=== PATIENT | female | born 2000 ===

== ENCOUNTER 2022-11-01 17:36 | Outpatient (REF) | payer BC, SELFPAY ==
[2022-11-02 05:53] LABS: CT PCR NOT DETECTED (Not Detect.); NG PCR NOT DETECTED (Not Detect.)
== END 2022-11-01 17:37 | disposition home or self-care (01) ==
LOC: HO.LNP 17:36
PROVIDERS: Visit Provider Physician Assistant
DX: Z76.89 Persons encountering health services in other specified circumstances (principal); Z20.2 Contact with and (suspected) exposure to infections with a predominantly sexual mode of transmission
CPT/HCPCS: 0353U

== ENCOUNTER 2023-03-07 11:51 | Outpatient (REF) | payer BC, SELFPAY ==
[2023-03-08 15:10] LABS: BV Int Neg Control Negative (Negative); BV Int Pos Control Positive (Positive)
== END 2023-03-07 11:52 | disposition home or self-care (01) ==
LOC: HO.LNP 11:51
PROVIDERS: Visit Provider Internal Medicine
DX: N76.0 Acute vaginitis (principal); B96.89 Other specified bacterial agents as the cause of diseases classified elsewhere
CPT/HCPCS: 87480; 87510; 87660

== ENCOUNTER 2023-03-07 15:39 | Outpatient (AMB) | payer BC, SELFPAY ==
--- OUTSIDE RECORDS SUMMARY | 2023-03-07 15:41 | XMS_ITS | Continuity of Care Document ---
Author Name Unknown Organization [facility] ter Address [address] [place] [id number]- Care Team Providers Care Trademark Paralegal Name Role Phone Nalini Michael MD Primary Care Physician Encounter [facility] [place] Date(s): 08/07/19 - 08/14/[address] [address]- [facility] Attending Physician: Cassie Chanel Allergies, Adverse Reactions, Alerts No Known Medication Allergies Substance Reaction Severity Status NKA Active Problem List Condition Effective Dates Status Health Status Inform ant Anxiety(Confirmed) Active Depression(Confirmed) Active Transient alteration of awareness(Confirmed) Active Social History Social History Type Response Smoking Status Never smoker entered on: 08/02/17 Sex
--- OUTSIDE RECORDS SUMMARY | 2023-03-07 15:41 | XMS_ITS | Continuity of Care Document ---
Author Name Unknown Organization [facility] ter Address [address] [place] [address]- Care Team Providers Care Assistant Controller Name Role Phone Nalini Michael MD Primary Care Physician Encounter [facility] [place] Date(s): 07/19/19 - 07/19/[address] [address]- [facility] Attending Physician: Michelle FRY, Neelima Payne Allergies, Adverse Reactions, Alerts No Known Medication Allergies Substance Reaction Severity Status NKA Active Problem List Condition Effective Dates Status Health Status Inform ant Anxiety(Confirmed) Active Depression(Confirmed) Active Transient alteration of awareness(Confirmed) Active Social History Social History Type Response Smoking Status Never smoker entered on: 08/02/17 Sex
--- OUTSIDE RECORDS SUMMARY | 2023-03-07 15:41 | XMS_ITS | Continuity of Care Document ---
Author Name [facility] Address [address] [place] [address] Organization [facility] Address [address] [place] [address] Support Name Relationship Address Phone No Primary Care, Physician Primary Care Provider Unknown Unavailable Patti Rouse Emergency Provider [facility] Emergen cy Department [address] [place] [address] Allergies, Adverse Reactions, Alerts No known allergies. Medications No medication information available. Problem List Active Problems Medical Problem Onset Date Status Drug withdrawal seizure Active Procedures Procedure Date Status CT cervical spine wo con August 04, [address] facial bones wo con August 04, [address] head/brain wo con August 04, 2020 active Relevant Diagnostic Tests and/or Laboratory Data Laboratory Results Test Date/Time Result Interp. Ref. Range Result Co mment White Blood Count August 04, 2020 7:20pm 7.4 10^3/uL 4.5-10.5 Red Blood Count August 04, 2020 7:20pm 4.26 10^6uL 4.00-5.00 Hemoglobin August 04, 2020 7:20pm 12.3 g/dL 11.8-15.8 Hematocrit August 04, 2020 7:20pm 36.4 % 35.0-45.0 Mean Corpuscular Volume August 04, 2020 7:20pm 85.5 fL 80.0-100.0 Mean Corpuscular Hemoglobin August 04, 2020 7:20pm 28.8 pg 23.0-31.0 Mean Corpuscular Hemoglobin Concent August 04, 2020 7:20pm 33.7 g/dL 32.0-36.0 Platelet Count August 04, 2020 7:20pm 347 10^3/uL 150-400 RDW Coefficient of Variation August 04, 2020 7:20pm 12.7 % 12.5-15.5 Mean Platelet Volume August 04, 2020 7:20pm 8.0 fL 7.0-10.5 Neutrophils (%) (Auto) August 04, 2020 7:20pm 78 % High 44-74 Lymphocytes (%) (Auto) August 04, 2020 7:20pm 17 % 16-46 Monocytes (%) (Auto) August 04, 2020 7:20pm 5 % 5-12 Eosinophils (%) (Auto) August 04, 2020 7:20pm 0 % 0-8 Basophils (%) (Auto) August 04, 2020 7:20pm 1 % 0-2 Absolute Neutrophils (auto) August 04, 2020 7:20pm 5.7 10^3/uL 1.5-7.8 Absolute Lymphocytes (auto) August 04, 2020 7:20pm 1.2 10^3/uL 0.85-4.1 Absolute Monocytes (auto) August 04, 2020 7:20pm 0.3 10^3/uL 0.2-1.1 Absolute Eosinophils (auto) August 04, 2020 7:20pm 0.0 10^3/uL Low 0.05-0.6 Absolute Basophils (auto) August 04, 2020 7:20pm 0.0 10^3/uL 0-0.2 Sodium Level August 04, 2020 7:20pm 135 mmol/L Low 136-145 Potassium Level August 04, 2020 7:20pm 4.9 mmol/L 3.5-5.1 Chloride Level August 04, 2020 7:20pm 99 mmol/L 98-107 Carbon Dioxide Level August 04, 2020 7:20pm 25 mmol/L 22-29 Anion Gap August 04, 2020 7:20pm 11 mmol/L 6-18 Blood Urea Nitrogen August 04, 2020 7:20pm 12 mg/dL 6-20 Creatinine August 04, 2020 7:20pm 0.7 mg/dL 0.5-0.9 Glomerular Filtration Rate Calc August 04, 2020 7:20pm > 60.00 mL/min 60- Multiply x 1.212 if of descent normal kidney function >60 mL/min results normalized to 1.73 m sq body surface area. Glucose Level August 04, 2020 7:20pm 98 mg/dL 74-109 Calcium Level August 04, 2020 7:20pm 10.3 mg/dL 8.6-10.4 Total Bilirubin August 04, 2020 7:20pm 0.5 mg/dL 0.4-1.2 Aspartate Amino Transf (AST/SGOT) August 04, 2020 7:20pm 24 IU/L 10-35 Alanine Aminotransferase (ALT/SGPT) August 04, 2020 7:20pm 24 U/L 5-33 Alkaline Phosphatase August 04, 2020 7:20pm 95 IU/L 35-104 Total Protein August 04, 2020 7:20pm 8.0 g/dL 6.6-8.7 Albumin August 04, 2020 7:20pm 4.9 g/dL 3.5-5.2 Advance Directives Advance Directive Response Recorded Date/ Time Date Patient Queried 08/04/20 August 04, 2020 6:20pm Does the patient have a Healthcare Proxy? No August 04, 2020 6:20pm Healthcare Proxy Status Informed Patient August 04, 2020 6:20pm Chief Complaint and Reason for Visit Encounter Admit Date Chief Complaint Reason for V isit Departed Emergency August 04, 2020 5:21pm seizure Hospital Discharge Instructions Additional Discharge Instructions Your e valuated today in the [place] emergency room after seizure while at rehab. You have started phenobarbital. You should continue taking that during your rehab stay. CT scan of your head, face, neck were all negative for acute pathology. Your tooth is chipped 10 you will need to follow-up with a dentist for this, there is nothing we can do in the emergency room fix this. . Your blood work is reassuring . Please follow-up with your primary care doctor in the next week. . Call MD return to the ED for fevers, chills, nausea, vomiting, chest pain, shortness of breath, or any other concern. Instruction/Education Provided Nonepilep tic Seizures (ED) Encounters Encounter Facility Location Admit/Visit Date Discharge/Departure Date Attending Provider Departed Emergency [facility] Emergency Department August 04, 2020 5:21pm August 04, 2020 9:49pm Functional Status Query Response Date Recorded Comment Patient Orientation Oriented x3 Person Place Time Awake Lethargic August 04, 2020 7:27pm Immunizations No known immunizations. Plan of Care Instructions Nonepileptic Seizures (ED) Social History Query Response Date Recorded Comment Does the patient use drugs? No August 04 7:27pm Is pt a current\former smoke r or user of tobacco products? Yes, current August 04, 2020 7:27pm On average how many days per week do you drink alcohol? 0 August 04, 2020 7:27pm Query Response Start Date Stop Date Is pt a current\former smoke r or user of tobacco products? Yes, current Vital Signs Vital Reading Result Reference Range Collection Date/Time Height 4 ft 11 in August 04 5:22pm Weight 50 kg August 04 5:22pm Temperature 98.9 F 97.5 F-99.3 F August 04 9:26pm Pulse 74 BPM 60-90 August 04 9:26pm Respiration 20 RPM -August 04 9:26pm Pulse Oximetry 100 % 95-100 August 04 9:26pm Blood Pressure Systolic 103 100-160 Jaleel cheatham 2020 9:26pm Blood Pressure Diastolic 53 60-90 Renny davis 2020 9:26pm
--- OUTSIDE RECORDS SUMMARY | 2023-03-07 15:41 | XMS_ITS | Continuity of Care Document ---
Author Name Unknown Organization [facility] Address [address] [place] [address]- Care Team Providers Care Education Director Name Role Phone Nalini Michael MD Primary Care Physician [place] [facility] [place] Date(s): 12/14/22 - 01/13/23 [facility] Adult [address] [place] [address]- Allergies, Adverse Reactions, Alerts No Known Allergies Problem List Condition Confirmation Course Effective Dates Status Health St atus Informant Anxiety Confirmed Active Depression Confirmed Active Transient alteration of awareness Confirmed Active Social History Social History Type Response Smoking Status Never smoker entered on: 08/02/17 Sex Patient Care team information Care Team Related Persons Name: ÓSCAR REYES Address: [address] [place] [address] Name: RONALD REYES Address: [place] [address]
--- OUTSIDE RECORDS SUMMARY | 2023-03-07 15:41 | XMS_ITS | Continuity of Care Document ---
Author Name Unknown Organization [facility] ter Address [address] [place] [address]- Care Team Providers Care Animal Researcher Name Role Phone Nalini Michael MD Primary Care Physician Encounter [facility] [place] [place] Date(s): 07/19/19 - 07/19/[address] [address]- [facility] Attending Physician: Michelle FRY, Neelima Payne Allergies, Adverse Reactions, Alerts No Known Medication Allergies Substance Reaction Severity Status NKA Active Problem List Condition Effective Dates Status Health Status Inform ant Anxiety(Confirmed) Active Depression(Confirmed) Active Transient alteration of awareness(Confirmed) Active Social History Social History Type Response Smoking Status Never smoker entered on: 08/02/17 Sex
--- OUTSIDE RECORDS SUMMARY | 2023-03-07 15:41 | XMS_ITS | Continuity of Care Document ---
Author Name Unknown Organization [facility] ter Address [address] [place] [address]- Care Team Providers Care Daytime Caregiver Name Role Phone Nalini Michael MD Primary Care Physician Encounter [facility] [place] Date(s): 07/19/19 - 07/19/[address] [address]- [facility] Attending Physician: Michelle FRY, Neelima Payne Allergies, Adverse Reactions, Alerts No Known Medication Allergies Substance Reaction Severity Status NKA Active Problem List Condition Effective Dates Status Health Status Inform ant Anxiety(Confirmed) Active Depression(Confirmed) Active Transient alteration of awareness(Confirmed) Active Social History Social History Type Response Smoking Status Never smoker entered on: 08/02/17 Sex
[2023-03-07 16:17] VITALS: BP 128/84; PULSE 105; TEMP 36.2; O2SAT 98; BMI 28.6
--- NOTE | 2023-03-07 16:17 | MHC.OFFWIV ---
Intake Vital Signs 03/07/23 16:17 Height 4 ft 11 in Weight 141 lb 6 oz BMI 28.6 BP 128/84 Blood Pressure Location Lt brachial Position Sitting Pulse 105 H Pulse Source Pulse Oximeter Temp 97.1 F Temp Source Oral Pulse Oximetry (%) 98 Oxygen Delivery Method Room Air Intake Visit Reasons: EP ?UTI Intake Note: Pt is here today for possible UTI Patient Tobacco Use Status: Current everyday Tobacco user (vape ) Allergies No Known Allergies Allergy (Verified 03/07/23 16:17) Do you need a note to return to daycare/school/sports/work: Yes HPI EP ?UTI HPI Details 22-year-old female presents to the office for a sick visit. Patient believes she has bacterial vaginosis. She is very itchy in the vaginal area with minimal discharge. Patient has had these symptoms before. Her partner was tested negative. She would also like a prescription of Diflucan. [facility] Social History Patient Tobacco Use Status: Current everyday Tobacco user (vape ) Physical Exam Vital Signs: Last Vital Signs Temp 97.1 F 03/07/23 16:17 Pulse 105 H 03/07/23 16:17 BP 128/84 03/07/23 16:17 Pulse Ox 98 03/07/23 16:17 Oxygen Delivery Method Room Air 03/07/23 16:17 BMI result Body Mass Index 28.6 General: Yes bladder normal to palpation and Yes no CVA tenderness Bimanual exam- vagina & uterus: bladder normal to palpation Back/Spine/Pelvis Back: no CVA tenderness Results AMB Urinalysis, Automated UA Leukoctes 70 Beata/uL Last Edit by Talya Martin CMA on 03/07/23 16:26 UA Nitrite Negative Last Edit by Talya Martin CMA on 03/07/23 16:26 UA Urobilinogen 0.2 mg/dL Last Edit by Talya Martin CMA on 03/07/23 16:26 UA Protein 15 mg/dL Last Edit by Talya Martin CMA on 03/07/23 16:26 UA pH 6.0 Last Edit by Talya Martin CMA on 03/07/23 16:26 UA Blood 80 Abhilash/uL Last Edit by Talya Martin CMA on 03/07/23 16:26 UA Specific [place] 1.025 Last Edit by Talya Martin CMA on 03/07/23 16:26 UA Ketone Negative Last Edit by Talya Martin CMA on 03/07/23 16:26 UA Bilirubin 0 mg/dL Last Edit by Talya Martin CMA on 03/07/23 16:26 UA Glucose 0 mg/dL Last Edit by Talya Martin CMA on 03/07/23 16:26 Results Reviewed Results Reviewed: Laboratory Last Values Urine pH (Auto) 6.0 03/07/23 16:25 Specific [place] (Auto) 1.025 03/07/23 16:25 Urine Protein (Auto) 15 mg/dL 03/07/23 16:25 Glucose (UA)(Auto) 0 mg/dL 03/07/23 16:25 Urine Ketones (Auto) Negative 03/07/23 16:25 Urine Blood (Auto) 80 Abhilash/uL 03/07/23 16:25 Urine Nitrite (Auto) Negative 03/07/23 16:25 Urine Bilirubin (Auto) 0 mg/dL 03/07/23 16:25 Urine Urobilinogen (Auto) 0.2 mg/dL 03/07/23 16:25 Leukocyte Esterase (Auto) 70 Beata/uL 03/07/23 16:25 Assessment & Plan Assessment & Plan (1) Bacterial vaginosis: Code(s): N76.0 - Acute vaginitis; B96.89 - Other specified bacterial agents as the cause of diseases classified elsewhere Plan: Urinalysis showed trace leuk. Metronidazole and Diflucan called in. Orders: Orders AMB Urinalysis Automated Today Z13.9 - Encounter for screening, unspecified Bacterial Vaginosis Panel Today B96.89 - Other specified bacterial agents as the cause of diseases classified elsewhere, N76.0 - Acute vaginitis Coding Level of Care Code Est Pt Level 3 (19803) Diagnoses Bacterial vaginosis N76.0; B96.89
== END 2023-03-07 16:36 | disposition home or self-care (01) ==
PROVIDERS: Visit Provider Internal Medicine
DX: R87.9 Unspecified abnormal finding in specimens from female genital organs (principal); B96.89 Other specified bacterial agents as the cause of diseases classified elsewhere; N76.0 Acute vaginitis
CPT/HCPCS: 81003; 99213

== ENCOUNTER 2023-04-07 11:53 | Outpatient (AMB) | payer BC, SELFPAY ==
--- NOTE | 2023-04-07 12:15 | AM.OFFWIN_ITS ---
Intake Vital Signs 04/07/23 12:20 Height 4 ft 11 in Weight 63.957 kg BMI 28.5 BP 120/80 Blood Pressure Location Lt brachial Position Sitting Pulse 90 Pulse Source Pulse Oximeter Temp 97.8 F Temp Source Temporal Artery Scan Pulse Oximetry (%) 98 Intake Visit Reasons: EP, BV? Intake Note: pt is here for BV recheck, patient completed antibiotics and wanted to confirm it is cleared up Patient Tobacco Use Status: Current everyday Tobacco user Allergies No Known Allergies Allergy (Verified 04/07/23 12:18) Do you need a note to return to daycare/school/sports/work: Yes HPI HPI Comments History of Present Illness Details 23-year-old female presents requesting r epeat BV test, patient was treated with metronidazole 500 mg p.o. b.i.d. x7 days and given Diflucan, she reports symptoms are improving however she is requesting a repeat BV test see that is gone. Denies further symptoms. Denies fevers, chills, abdominal pain, nausea, vomiting, head to no bleeding or discharge, chest pain, shortness of breath Physical exam benign Will have patient self swab. Likely resolved bacterial vaginosis and possible yeast. Patient denies concerns for sexually transmitted infections and would not like testing Educated patient on diagnosis and treatment plan, answered all question, patient verbalizes understanding. At this time patient will be discharged home, advised to return with new or worsening symptoms. Educated on worrisome signs and symptoms and when to return. At this time I feel comfortable discharge home. [facility] Social History Patient Tobacco Use Status: Current everyday Tobacco user Review of Systems Const Details: Constitutional : No Weight loss, No Fever, No Chills, No Fatigue, No Malaise ENT/Mouth : No sore throat, No Rhinorrhea Eyes: No Eye Pain, No Swelling, No Redness Cardiovascular : No Chest Pain, No SOB, No Dyspnea on Exertion, No Orthopnea, No Edema, No Palpitations Respiratory : No Cough, No Sputum, No Wheezing Gastrointestinal : No Nausea, No Vomiting, No Diarrhea, No Constipation, No abdominal Pain, No Hematochezia, No Melena Genitourinary : No Dysuria, No Urinary Frequency, No Hematuria, Musculoskeletal : No joint pain, No Myalgias, No Joint Swelling Skin : No Skin Lesions, No rash Neuro : No Weakness, No Numbness, No Dizziness, No Headache Psych : No Anxiety/Panic, No Depression All other systems reviewed and are negative All systems reviewed & are unremarkable except as noted in HPI and below Physical Exam Vital Signs: Last Vital Signs Temp 97.8 F 04/07/23 12:20 Pulse 90 04/07/23 12:20 BP 120/80 04/07/23 12:20 Pulse Ox 98 04/07/23 12:20 BMI result Body Mass Index 28.5 vss Appearance: Alert.? Oriented X3.? No acute distress.? Head: Normocephalic, atraumatic, no step-offs or deformities Eyes: Pupils equal, round and reactive to light.? Neck: Normal inspection.? Neck supple.? CVS: Normal heart rate and rhythm.? Pulses normal.? Respiratory: No respiratory distress.? Breath sounds normal.? Abdomen: Soft and nontender.? Skin: Skin warm and dry.? Normal skin color.? Normal skin turgor.? Extremities: 5/5 strength to bilateral upper and lower extremities Neuro: Oriented X 3.? No motor deficit.? No sensory deficit. CN 2-12 intact Sensitive exam: No indication Assessment & Plan Assessment & Plan (1) Encounter for laboratory test: Code(s): Z01.89 - Encounter for other specified special examinations Plan Take your medications as prescribed. If you were prescribed antibiotics today, it is important that you take your medication to their entirety, do not skip any doses, do not finish them early. Follow-up with your primary care provider this week. Return to the emergency department with new or worsening symptoms. Such as fevers, chills, chest pain, shortness of breath, nausea, vomiting, dizziness, headache, vision changes, lethargy In case of emergency call 911 Coding Level of Care Code Est Pt Level 3 (62593) Diagnoses Encounter for laboratory test Z01.89
[2023-04-07 12:20] VITALS: BP 120/80; PULSE 90; TEMP 36.6; O2SAT 98; BMI 28.5
== END 2023-04-07 12:52 | disposition home or self-care (01) ==
PROVIDERS: Visit Provider Physician Assistant
DX: Z01.89 Encounter for other specified special examinations (principal)
CPT/HCPCS: 99213

== ENCOUNTER 2023-04-07 14:14 | Outpatient (REF) | payer BC, SELFPAY ==
[2023-04-08 12:49] LABS: BV Int Neg Control Negative (Negative); BV Int Pos Control Positive (Positive)
== END 2023-04-07 14:15 | disposition home or self-care (01) ==
LOC: HO.LNP 14:14
PROVIDERS: Visit Provider Internal Medicine
DX: Z01.89 Encounter for other specified special examinations (principal); N76.0 Acute vaginitis; B96.89 Other specified bacterial agents as the cause of diseases classified elsewhere
CPT/HCPCS: 87480; 87510; 87660

== ENCOUNTER 2023-05-27 09:20 | Outpatient (AMB) | payer BC, SELFPAY ==
--- OUTSIDE RECORDS SUMMARY | 2023-05-27 09:21 | XMS_ITS | Continuity of Care Document ---
Author Name Unknown Organization [facility] Address [address] [place] [address]- Care Team Providers Care Recruitment Consultant Name Role Phone Nalini Michael MD Primary Care Physician [place] [facility] [place]14[place]23 - 04/13/23 [facility] [address] [place] [address]- Attending Physician: Surya Barton Admitting Physician: Surya Barton Referring Physician: AdmtrSurya Allergies, Adverse Reactions, Alerts No Known Allergies Problem List Condition Confirmation Course Effective Dates Status Health St atus Informant Anxiety Confirmed Active Depression Confirmed Active Transient alteration of awareness Confirmed Active Social History Social History Type Response Smoking Status Never smoker entered on: 08/02/17 Sex Patient Care team information Care Team Related Persons Name: ÓSCAR REYES Address: home [address] [place] [address] Name: RONALD REYES Address: [place] [address]
--- OUTSIDE RECORDS SUMMARY | 2023-05-27 09:21 | XMS_ITS | Continuity of Care Document ---
Author Name Unknown Organization [facility] Address [address] [place] [address]- Care Team Providers Care Brass Molder Name Role Phone Nalini Michael MD Primary Care Physician [phone] Encounter [facility] [place] Date(s): 12/14/22 - 04/13/23 [facility] Adult [address] [place] [address]- Attending Physician: Nadja Jeong Allergies, Adverse Reactions, Alerts No Known Allergies Problem List Condition Confirmation Course Effective Dates Status Health St atus Informant Anxiety Confirmed Active Depression Confirmed Active Transient alteration of awareness Confirmed Active Social History Social History Type Response Smoking Status Never smoker entered on: 08/02/17 Sex Patient Care team information Care Team Related Persons Name: ÓSCAR REYES Address: home [address] [place] [address] Name: RONALD REYES Address: [place] [address]
[2023-05-27 11:28] VITALS: BP 110/72; PULSE 78; TEMP 36.6; O2SAT 99; BMI 27.5
--- NOTE | 2023-05-27 11:28 | AM.OFFWIN_ITS ---
Intake Vital Signs 05/27/23 11:28 Height 4 ft 11 in Weight 136 lb 2 oz BMI 27.5 BP 110/72 Blood Pressure Location Lt brachial Position Sitting Pulse 78 Pulse Source Pulse Oximeter Temp 97.8 F Temp Source Temporal Artery Scan Pulse Oximetry (%) 99 Oxygen Delivery Method Room Air Intake Visit Reasons: EP BV [phone] Intake Note: pt is here for c/o BV, didn't complete antibiotics and was looking for the antibiotics again Patient Tobacco Use Status: Current everyday Tobacco user Allergies No Known Allergies Allergy (Verified 05/27/23 11:29) Do you need a note to return to daycare/school/sports/work: Yes HPI EP BV [phone] HPI Details Patient is a 23-year-old female comes to the walk-in clinic stating that she has a history of recurrent bacterial vaginosis, and with her last course oral metronidazole she did not complete the full regimen, and is desiring being re-treated. However she states that 3 months ago she was also treated with oral metronidazole, and that it had come back again soon after. She denies or risk of STDs. She complains odorous discharge, but no itching, pelvic pain, abdominal pain, back pain, changes with urination, nausea vomiting or diarrhea, fever chills, vaginal bleeding, myalgias or malaise, or other significant associated symptoms. [facility] Patient Tobacco Use Status: Current everyday Tobacco user Physical Exam Vital Signs: Last Vital Signs Temp 97.8 F 05/27/23 11:28 Pulse 78 05/27/23 11:28 BP 110/72 05/27/23 11:28 Pulse Ox 99 05/27/23 11:28 Oxygen Delivery Method Room Air 05/27/23 11:28 BMI result Body Mass Index 27.5 Const General: cooperative, healthy appearing, comfortable, no acute distress, alert, awake, Physically active and well groomed; No anxious, diaphoretic, ill appearing, intoxicated appearing, poor hygiene or tired appearing Nutritional Appearance: average body habitus Orientation/consciousness: oriented to person Limitations: no limitations Resp Effort & Inspection: normal respiratory effort, able to speak in complete sentences, no audible wheezes, no cough, no grunting, not labored, no nasal flaring, no retractions and symmetric chest movement Cardio Rate: regular rate GI Inspection: No Abdominal wall edema, No distended and No incision Palpation (GI): Soft to palpation, not firm, nontender, no guarding, not rigid and No hepatosplenomegaly present General: Yes no CVA tenderness Back/Spine/Pelvis Back: no CVA tenderness Skin Other: Good color, warm and dry Neuro General: oriented to person Psych Appearance: grossly normal Mental Status: mental status grossly normal Speech and movement: Normal speech and movement present Affect: normal affect Attitude: cooperative Thought process: Normal thought process present Insight: Good insight present (Psych) Judgement: Good judgement present (Psych) Assessment & Plan Assessment & Plan (1) Bacterial vaginosis: Code(s): N76.0 - Acute vaginitis; B96.89 - Other specified bacterial agents as the cause of diseases classified elsewhere Plan: Patient is a 23-year-old female who reports recurrence bacterial vaginosis. She states she is not , and is not worried about STDs at this time. She did not complete her last course of metronidazole for the BV, and requests retreatment for this, as well as Diflucan as these T usually increases after the antibiotic use. She requests trying alternative treatment with clindamycin due to her recurrent infections, which she reports was an issue for her as recently as 3 months ago. She declined or STD testing today, as well as recurrence vaginosis swab. She knows to follow up if symptoms persist or worsen. Medications: New clindamycin phosphate 2% for 7 days 1 appful vaginal BEDTIME 40 grams 0RF bacterial vaginosis 7 days fluconazole may repeat second dose 72 hrs after first dose if symptoms persist 150 mg PO Q3D 2 tabs 0RF 2 doses Coding Level of Care Code Est Pt Level 4 (00583) Diagnoses Bacterial vaginosis N76.0; B96.89
== END 2023-05-27 12:11 | disposition home or self-care (01) ==
PROVIDERS: Visit Provider Physician Assistant Medical
DX: N76.0 Acute vaginitis (principal); B96.89 Other specified bacterial agents as the cause of diseases classified elsewhere
CPT/HCPCS: 99214

== ENCOUNTER 2023-07-01 09:08 | Outpatient (AMB) | payer BC, SELFPAY ==
--- NOTE | 2023-07-01 09:17 | AM.OFFWIN_ITS ---
Intake Vital Signs 07/01/23 09:18 Height 4 ft 11 in Weight 129 lb BMI 26.1 BP 100/60 Blood Pressure Location Lt brachial Position Sitting Pulse 129 H Pulse Source Pulse Oximeter Temp 100.2 F Temp Source Oral Pulse Oximetry (%) 98 Oxygen Delivery Method Room Air Intake Visit Reasons: EP, sore throat ( [phone]) Intake Note: Pt is here today c/o sore throat, chills and fever Patient Tobacco Use Status: Current everyday Tobacco user (vape) Allergies No Known Allergies Allergy (Verified 07/01/23 09:17) Do you need a note to return to daycare/school/sports/work: Yes HPI HPI Comments History of Present Illness Details 23-year-old female that presents for sor e throat. Believe she might have strep endorses low-grade temperature. PFS Social History Patient Tobacco Use Status: Current everyday Tobacco user (vape) Review of Systems ENT Reports sore throat Physical Exam Vital Signs: Last Vital Signs Temp 100.2 F 07/01/23 09:18 Pulse 129 H 07/01/23 09:18 BP 100/60 07/01/23 09:18 Pulse Ox 98 07/01/23 09:18 Oxygen Delivery Method Room Air 07/01/23 09:18 BMI result Body Mass Index 26.1 Const General: cooperative, healthy appearing, no acute distress and alert Orientation/consciousness: patient oriented x3 Limitations: no limitations HEENT Other: 2+ tonsils bilaterally mild erythema in the posterior pharynx white exudates on the left tonsil. Uvula midline no trismus or muffled voice. Head: Yes normal to inspection Ears: hearing grossly normal bilaterally General nose exam: Normal external nose present Resp Effort & Inspection: normal respiratory effort and able to speak in complete sentences Cardio Rate: regular rate Skin General skin exam: no rashes or lesions noted Neuro General: patient oriented x3 Extrem General: Yes normal to inspection Results AMB Rapid Strep AMB Rapid Strep Positive Last Edit by Rosanna Camara CMA on 07/01/23 09:31 Results Reviewed Results Reviewed: Laboratory Last Values Strep Scn Rapid Clinic Positive 07/01/23 09:26 Assessment & Plan Assessment & Plan (1) Strep pharyngitis: Code(s): J02.0 - Streptococcal pharyngitis Plan: Vital signs notable for mild tachycardia. Exam notable for the above findings. Rapid strep positive will prescribe penicillin times 10 days. Discharge instructions, follow up and treatment are discussed with patient in my usual fashion. Alternatives in treatment are also discussed. The patient will return for worsening symptoms or as needed. Advised that any labs/imaging ordered will be followed up on and contact made if further treatment needed. Counseled that patient's condition may require further evaluation and/or treatment. Symptoms of concern for worsening disorder discussed in detail in my customary manner. Patient does verbalize understanding of the plan, there are no apparent barriers to communication. The patient is given the opportunity to ask questions and have them answered to his/her satisfaction Orders: Orders AMB Rapid Strep Screen Today Z13.9 - Encounter for screening, unspecified Patient Instructions: Your rapid strep test is positive you have been prescribed penicillin for 10 days, In the meantime soothing relief is often obtained from the following: a cup of tea with honey a cup of tea with lemon hot chocolate Chicken bullion or soup warm salt water gargles or baking soda. Mix 1 teaspoon of salt with 1 cup of water gargle for 5 to 10 seconds and then spit and repeat as needed. You can also do this with 1 teaspoon of baking soda. There are many [id number] medications to help soothe a sore throat I would suggest: CEPACOL LOZENGES CHLORASEPTIC THROAT SPRAY. There are many others.. Coding Level of Care Code Est Pt Level 3 (91807) Diagnoses Strep pharyngitis J02.0
[2023-07-01 09:18] VITALS: BP 100/60; PULSE 129; TEMP 37.9; O2SAT 98; BMI 26.1
== END 2023-07-01 09:58 | disposition home or self-care (01) ==
PROVIDERS: Visit Provider Physician Assistant
DX: J02.9 Acute pharyngitis, unspecified (principal); J02.0 Streptococcal pharyngitis
CPT/HCPCS: 87880; 99213

== ENCOUNTER 2024-03-07 08:06 | Outpatient (AMB) | payer BC, SELFPAY ==
--- NOTE | 2024-03-07 08:06 | AM.OFFWIN_ITS ---
Intake Vital Signs 03/07/24 08:07 Height 4 ft 11 in Weight 156 lb BMI 31.5 BP 106/68 Blood Pressure Location Rt brachial Position Sitting Pulse 97 Pulse Source Pulse Oximeter Temp 98.3 F Temp Source Oral Pulse Oximetry (%) 98 Oxygen Delivery Method Room Air Intake Visit Reasons: EP- pain in LT ear, has drops from another clinic Intake Note: pt c/o LT ear pain. x 4 days. Can't hear out of ear. Feels like water in ear Patient Tobacco Use Status: Current everyday Tobacco user (vape) Allergies No Known Allergies Allergy (Verified 03/07/24 08:07) Do you need a note to return to daycare/school/sports/work: No HPI EP- pain in LT ear, has drops from another clinic HPI Details This note is constructed using voice recognition software. While every effort has been made to ensure accuracy, environmental services assistant errors may have been included. The patient is a 23 year old female who presents to the clinic today with left ear pain for the past 4 days. She notes she was seen in an alternate walk in clinic and was treated for external ear infection with ear drops, but does not feel this has improved at all. She was advised that her allergies are also something she should be treating, with otc allergy medication. She was concerned that she did not receive an oral antibiotic. She feels the hearing in the left ear is slightly worse than previous. [facility] Social History Patient Tobacco Use Status: Current everyday Tobacco user (vape) Review of Systems Const All systems reviewed & are unremarkable except as noted in HPI and below Physical Exam Vital Signs: Last Vital Signs Temp 98.3 F 03/07/24 08:07 Pulse 97 03/07/24 08:07 BP 106/68 03/07/24 08:07 Pulse Ox 98 03/07/24 08:07 Oxygen Delivery Method Room Air 03/07/24 08:07 BMI result Body Mass Index 31.5 Const General: cooperative, healthy appearing, comfortable and no acute distress Orientation/consciousness: patient oriented x3 HEENT Head: Yes normal to inspection, Yes No palpable skull fracture present and Yes normocephalic Ears: hearing grossly normal bilaterally, TM's normal bilaterally, mastoids normal (no TTP) bilaterally and Abnormal EAC present erythema on the left General nose exam: Normal external nose present Face and sinus: Yes normal facial exam Mouth: Normal oral and palatal mucosa present Teeth and gingiva: dentition normal Throat: Yes posterior oropharynx normal Eyes General: appearance normal, both eyes and all related structures Neck Neck: Yes normal visual inspection, Yes full ROM, Yes no lymphadenopathy, Yes no meningeal signs, Yes trachea midline and Yes supple Resp Effort & Inspection: normal respiratory effort and able to speak in complete sentences Skin General skin exam: no rashes or lesions noted Neuro General: patient oriented x3 and no meningeal signs Assessment & Plan Assessment & Plan (1) Otitis externa: Code(s): H60.90 - Unspecified otitis externa, unspecified ear Qualifiers: Otitis externa type: unspecified type Chronicity: acute Laterality: left Qualified Code(s): H60.502 - Unspecified acute noninfective otitis externa, left ear Plan: Given patient's worsened perceived symptoms despite being treated with drops, elected to try oral antibiotics for treatment. Advised patient to continue with treatment for allergies as this may be contributing to some of her symptoms. Advised follow up with primary care with worsening or failure to resolve as she may require referral to ENT. Plan See above for full details and plan. Medications: New amoxicillin-pot clavulanate 875-125 mg 1 tab PO BID 7 days 14 tabs 0RF Coding Level of Care Code Est Pt Level 3 (89495) Diagnoses Acute otitis externa of left ear, unspecified type H60.502 Otitis externa type: unspecified type Chronicity: acute Laterality: left
[2024-03-07 08:07] VITALS: BP 106/68; PULSE 97; TEMP 36.8; O2SAT 98; BMI 31.5
--- OUTSIDE RECORDS SUMMARY | 2024-03-13 06:11 | XMS_ITS | Continuity of Care Document ---
Author Organization [facility] Address [address] [place] [address]- Care Team Providers Care Preschool Teacher Name Role Phone Not on Staff, PCP Primary Care Physician Unavail able Encounter [facility] Date(s): 07/26/23 - 07/26/[address] [address]- Discharge Disposition: A-D/C Home Attending Physician: Braulio Dover DO Admitting Physician: Braulio Dover DO Referring Physician: Not on Staff, Referring MD Allergies, Adverse Reactions, Alerts No Known Allergies Medications oxyCODONE 5 mg oral tablet 5 mg, Tablet, By Mouth, Once, STAT, 07/26/23 6:20:00 EST, Stop date 07/26/23 6:20:00 EST Start Date: 07/26/23 Stop Date: 07/26/23 Status: Completed oxyCODONE 5 mg oral tablet 5 mg, 1, tablet, By Mouth, Every 6 hours, PRN, for 3 days, # 10 tablet, Refills 0, Tot. Refills 0, Acute 07/29/23 7:19:00 EST, as needed for pain, 07/26/23 7:19:00 EST, Route to Pharmacy Electronically, [facility]/pharmacy #[id number], Partial fill upon patient re... Start Date: 07/26/23 Stop Date: 07/29/23 Status: Ordered Problem List Condition Confirmation Course Effective Dates Status Health St atus Informant Anxiety Confirmed Active Depression Confirmed Active Transient alteration of awareness Confirmed Active Vital Signs Most recent to oldest [Reference Range]: 1 2 3 Height 150 cm (07/26/23 6:09 AM) 150 cm (07/26/23 4:33 AM) 150 cm (07/26/23 12:12 AM) Weight 59.1 kg (07/26/23 6:09 AM) 59.1 kg (07/26/23 4:33 AM) 59.1 kg (07/26/23 12:12 AM) Oxygen Saturation [94-100 %] 100 % (07/26/23 6:09 AM) 99 % (07/26/23 4:33 AM) 97 % (07/26/23 12:12 AM) Pulse Rate [55-90 bpm] 99 bpm *H* (07/26/23 6:09 AM) 106 bpm *H* (07/26/23 4:33 AM) 117 bpm *H* (07/26/23 12:12 AM) Body Mass Index [18.5-24.99 kg/m2] 26.27 kg/m2 *H* (07/26/23 6:09 AM) 26.27 kg/m2 *H* (07/26/23 4:33 AM) Blood Pressure [90-138/55-84 mm Hg] 111/61mm Hg (07/26/23 6:09 AM) 123/72mm Hg (07/26/23 4:33 AM) 128/87mm Hg (07/26/23 12:12 AM) Respiratory Rate [16-30 br/min] 18 br/min (07/26/23 6:24 AM) 18 br/min (07/26/23 6:09 AM) 18 br/min (07/26/23 4:33 AM) Temperature [96.8-100.4 DegF] 99.1 DegF (07/26/23 6:09 AM) 98.4 DegF (07/26/23 4:33 AM) 99.6 DegF (07/26/23 12:12 AM) Liters per Minute 0 L/min (07/26/23 6:09 AM) Mode of Delivery (Oxygen) Room air (07/26/23 6:09 AM) Room air (07/26/23 4:33 AM) Room air (07/26/23 12:12 AM) Blood pressure sites Arm, right (07/26/23 6:09 AM) Arm, left (07/26/23 12:12 AM) Temperature Route Temporal (07/26/23 6:09 AM) Temporal (07/26/23 4:33 AM) Temporal (07/26/23 12:12 AM) Dry Weight 59.1 kg (07/26/23 6:09 AM) 59.1 kg (07/26/23 4:33 AM) 59.1 kg (07/26/23 12:12 AM) Social History Social History Type Response Smoking Status Never smoker entered on: 08/02/17 Sex Patient Care team information Care Team Personnel Name: Not on Staff, PCP Position: [facility] Physician (General Medicine) Member Role: PCP Name: Jayda Saldana RN Position: [facility] ED RN W/OE and Tasks Member Role: Patient Care Provider Name: Braulio Dover DO Position: [facility] ED Medicine MD Member Role: Admitting Physician Address: Address: [address] [place] [address] [place] [address] Name: Francoise Rebolledo RN Position: [facility] ED RN W/OE and Tasks Member Role: Patient Care Provider Care Team Related Persons Name: ÓSCAR REYES Address: [place] [address] Name: RONALD REYES Address: home [address] [place] [address]
== END 2024-03-07 09:06 | disposition home or self-care (01) ==
PROVIDERS: Visit Provider Registered Nurse
DX: H60.502 Unspecified acute noninfective otitis externa, left ear (principal)
CPT/HCPCS: 99213